=== PATIENT | male | born 1950 | race Caucasian/White ===

== ENCOUNTER → 2020-04-18 | Outpatient (CLI) | payer OTHER, MEDICARE | LOC: WOUNDCARE 09:06 | PROVIDERS: ATTEND Surgery | DX: I87.332 Chronic venous hypertension (idiopathic) with ulcer and inflammation of left lower extremity (principal); S81.802A Unspecified open wound, left lower leg, initial encounter; I89.0 Lymphedema, not elsewhere classified; L97.222 Non-pressure chronic ulcer of left calf with fat layer exposed | CPT/HCPCS: 11042 ==

== ENCOUNTER → 2020-04-24 | Outpatient (CLI) | payer OTHER, MEDICARE | LOC: WOUNDCARE 14:14 | PROVIDERS: ATTEND Surgery | DX: I87.332 Chronic venous hypertension (idiopathic) with ulcer and inflammation of left lower extremity (principal); L97.222 Non-pressure chronic ulcer of left calf with fat layer exposed; I89.0 Lymphedema, not elsewhere classified; S81.802A Unspecified open wound, left lower leg, initial encounter; I96 Gangrene, not elsewhere classified | CPT/HCPCS: 11042; G0463 ==

== ENCOUNTER → 2020-05-04 | Outpatient (CLI) | payer OTHER, MEDICARE | LOC: WOUNDCARE 08:24 | PROVIDERS: ATTEND Orthopaedic Surgery Hand Surgery | DX: I87.332 Chronic venous hypertension (idiopathic) with ulcer and inflammation of left lower extremity (principal); L97.222 Non-pressure chronic ulcer of left calf with fat layer exposed; I89.0 Lymphedema, not elsewhere classified; S81.802A Unspecified open wound, left lower leg, initial encounter; I96 Gangrene, not elsewhere classified | CPT/HCPCS: 11042; G0463 ==

== ENCOUNTER → 2020-05-11 | Outpatient (CLI) | payer OTHER, MEDICARE | LOC: WOUNDCARE 08:23 | PROVIDERS: ATTEND Surgery | DX: I87.332 Chronic venous hypertension (idiopathic) with ulcer and inflammation of left lower extremity (principal); I96 Gangrene, not elsewhere classified; S81.802A Unspecified open wound, left lower leg, initial encounter; I89.0 Lymphedema, not elsewhere classified; L97.222 Non-pressure chronic ulcer of left calf with fat layer exposed | CPT/HCPCS: 11042; A6253; G0463 ==

== ENCOUNTER → 2020-05-18 | Outpatient (CLI) | payer OTHER, MEDICARE | LOC: WOUNDCARE 08:24 | PROVIDERS: ATTEND Surgery | DX: I87.332 Chronic venous hypertension (idiopathic) with ulcer and inflammation of left lower extremity (principal); L97.212 Non-pressure chronic ulcer of right calf with fat layer exposed; I89.0 Lymphedema, not elsewhere classified; S81.802A Unspecified open wound, left lower leg, initial encounter; I96 Gangrene, not elsewhere classified | CPT/HCPCS: 11042; G0463 ==

== ENCOUNTER → 2020-05-25 | Outpatient (CLI) | payer MEDICARE, OTHER | LOC: WOUNDCARE 08:24 | PROVIDERS: ATTEND Surgery | DX: I87.332 Chronic venous hypertension (idiopathic) with ulcer and inflammation of left lower extremity (principal); L97.222 Non-pressure chronic ulcer of left calf with fat layer exposed; I89.0 Lymphedema, not elsewhere classified; S81.802A Unspecified open wound, left lower leg, initial encounter; I96 Gangrene, not elsewhere classified | CPT/HCPCS: 11042; A6260; G0463 ==

== ENCOUNTER → 2020-06-01 | Outpatient (CLI) | payer MEDICARE | LOC: WOUNDCARE 08:27 | PROVIDERS: ATTEND Surgery | DX: I87.332 Chronic venous hypertension (idiopathic) with ulcer and inflammation of left lower extremity (principal); L97.222 Non-pressure chronic ulcer of left calf with fat layer exposed; I89.0 Lymphedema, not elsewhere classified; S81.802A Unspecified open wound, left lower leg, initial encounter; I96 Gangrene, not elsewhere classified | CPT/HCPCS: 11042; G0463 ==

== ENCOUNTER → 2020-06-08 | Outpatient (CLI) | payer MEDICARE | LOC: WOUNDCARE 08:23 | PROVIDERS: ATTEND Orthopaedic Surgery Hand Surgery | DX: I87.332 Chronic venous hypertension (idiopathic) with ulcer and inflammation of left lower extremity (principal); S81.802A Unspecified open wound, left lower leg, initial encounter; L97.222 Non-pressure chronic ulcer of left calf with fat layer exposed; I96 Gangrene, not elsewhere classified; I89.0 Lymphedema, not elsewhere classified | CPT/HCPCS: 11042; G0463 ==

== ENCOUNTER → 2020-06-15 | Outpatient (CLI) | payer MEDICARE | LOC: WOUNDCARE 08:22 | PROVIDERS: ATTEND Surgery | DX: I87.332 Chronic venous hypertension (idiopathic) with ulcer and inflammation of left lower extremity (principal); L97.222 Non-pressure chronic ulcer of left calf with fat layer exposed; I89.0 Lymphedema, not elsewhere classified; S81.802A Unspecified open wound, left lower leg, initial encounter; I96 Gangrene, not elsewhere classified | CPT/HCPCS: 11042; G0463 ==

== ENCOUNTER → 2020-06-22 | Outpatient (CLI) | payer MEDICARE | LOC: WOUNDCARE 09:27 | PROVIDERS: ATTEND Orthopaedic Surgery Hand Surgery | DX: I87.332 Chronic venous hypertension (idiopathic) with ulcer and inflammation of left lower extremity (principal); I96 Gangrene, not elsewhere classified; S81.802A Unspecified open wound, left lower leg, initial encounter; I89.0 Lymphedema, not elsewhere classified; L97.222 Non-pressure chronic ulcer of left calf with fat layer exposed | CPT/HCPCS: 11042; G0463 ==

== ENCOUNTER → 2020-06-29 | Outpatient (CLI) | payer MEDICARE | LOC: WOUNDCARE 08:24 | PROVIDERS: ATTEND Surgery | DX: I87.332 Chronic venous hypertension (idiopathic) with ulcer and inflammation of left lower extremity (principal); I96 Gangrene, not elsewhere classified; S81.802A Unspecified open wound, left lower leg, initial encounter; I89.0 Lymphedema, not elsewhere classified; L97.222 Non-pressure chronic ulcer of left calf with fat layer exposed | CPT/HCPCS: 11042; G0463 ==

== ENCOUNTER → 2020-07-13 | Outpatient (CLI) | payer MEDICARE | LOC: WOUNDCARE 08:23 | PROVIDERS: ATTEND Surgery | DX: I87.332 Chronic venous hypertension (idiopathic) with ulcer and inflammation of left lower extremity (principal); I96 Gangrene, not elsewhere classified; L97.222 Non-pressure chronic ulcer of left calf with fat layer exposed; I89.0 Lymphedema, not elsewhere classified; S81.802A Unspecified open wound, left lower leg, initial encounter | CPT/HCPCS: 99213 ==

== ENCOUNTER → 2020-07-20 | Outpatient (CLI) | payer MEDICARE | LOC: WOUNDCARE 08:22 | PROVIDERS: ATTEND Surgery | DX: I87.332 Chronic venous hypertension (idiopathic) with ulcer and inflammation of left lower extremity (principal); S81.802A Unspecified open wound, left lower leg, initial encounter; L97.222 Non-pressure chronic ulcer of left calf with fat layer exposed; I89.0 Lymphedema, not elsewhere classified | CPT/HCPCS: 99212 ==